=== PATIENT | male | born 1955 | race Two or more races ===

== ENCOUNTER 2024-05-30 14:49 | Emergency (ER) | payer MEDICARE ==
[~2024-05-30] VITALS: Ht 172.7 cm; Wt 79.5 kg
[2024-05-30 15:38] VITALS: TEMP 98.6
[2024-05-30 15:50] VITALS: BP 108/74; PULSE 84; RESP 16; O2SAT 98
== END 2024-05-30 16:26 | disposition home or self-care (01) ==
LOC: ER 14:49
DX: T67.9XXA Effect of heat and light, unspecified, initial encounter (principal); X58.XXXA Exposure to other specified factors, initial encounter; Y93.89 Activity, other specified; Y92.89 Other specified places as the place of occurrence of the external cause; Y99.8 Other external cause status
CPT/HCPCS: 99283